=== PATIENT | female | born 1980 | race Hispanic/Latino ===

== ENCOUNTER 2018-01-16 12:59 | Emergency (ER) | payer SELFPAY ==
[2018-01-16 13:11] VITALS: BP 110/74
[2018-01-16] MEDS ORDERED: DECADRON IV ONE (14:12)
--- NOTE | 2018-01-16 15:20 | Cat Scan Report ---
FINAL REPORT PROCEDURE: CT LUMBAR SPINE WO CON TECHNIQUE: Computerized axial tomography of the lumbar spine was performed from T12 to the sacrum without contrast material. HISTORY: severe back pain COMPARISON: No prior studies are available for comparison. FINDINGS: The vertebral body heights and alignment are maintained. There is limited evaluation of disc material. There is likely broad-based posterior disc herniation at L4-5. There is significant disc space narrowing, endplate sclerosis, and osteophyte formation at L5-S1. There may also be a broad-based posterior disc protrusion. Facet arthritic changes are also noted bilaterally. No acute fracture or subluxation is seen. IMPRESSION: Degenerative disc changes at L4-5 and L5-S1. Consider further evaluation with MRI to evaluate the disc material
--- NOTE | 2018-01-16 15:51 | Emergency Department Report ---
ED Back Pain/Injury HPI - General Chief Complaint: Back Pain/Injury Stated Complaint: PALPITATIONS Time Seen by Provider: 01/16/18 14:12 Source: patient Mode of arrival: Wheelchair Limitations: No Limitations - History of Present Illness Initial Comments: This is a 37 y.o. female that presents with low back pain and facial numbness for 1 day. Patient reports standing up from vanity chair and heard a loud pop in lower back and felt numbness on left side of face. She is currently taking abiola and xanax for chronic back pain. Followed by [facility] and pain management. She reports having difficulty standing and walking. She is sitting in a wheelchair with family at bedside. Reports pain 10/10 and constant. She is taking current medication for pain which is not controlling pain. She put a heating pad to lower back causing bruising and burned skin all day yesterday. There is mild swelling to bilateral lower back. Denies chest pain, nausea/ vomiting, difficulty voiding or passing stool, and numbness/tingling to lower extremity. MD Complaint: back pain, back injury -: days(s) (1) Similar Symptoms Previously: Yes (chronic low back pain, but never bothered ambulation) Place: home Radiation: none Severity: severe Severity scale (0 -10): 10 Quality: sharp, aching Consistency: constant Improves With: none Worsens With: movement, walking Context: other (while standing from chair) Associated Symptoms: difficulty walking. denies: difficulty urinating, diaphoresis, incontinence, fever/chills, constipation, headaches, abdominal pain , loss of appetite, nausea/vomiting, rash, seizure, shortness of breath, syncope - Related Data Home Medications Medication Instructions Recorded Confirmed Last Taken ALPRAZolam [Xanax TAB] 1 mg PO BID PRN 07/19/15 07/19/15 07/19/15 07:00 Cyclobenzaprine [Flexeril 10 MG 10 mg PO TID PRN 07/19/15 07/19/15 07/18/15 15: 30 TAB] Oxycodone HCl [Roxicodone TAB] 30 mg PO Q6H PRN 07/19/15 07/19/15 07/19/15 07:00 Previous Rx's Medication Instructions Recorded Last Taken Type Amoxicillin [Trimox CAP] 500 mg PO Q8H #30 capsule 07/19/15 Unknown Rx levETIRAcetam [Keppra TAB] 500 mg PO BID #60 tablet 07/19/15 Unknown Rx Prednisone [predniSONE 10 mg 10 mg PO .TAPER #1 tab.ds.pk 01/16/18 Unknown Rx (6-Day Pack, 21 Tabs)] Allergies Allergy/AdvReac Type Severity Reaction Status Date / Time haloperidol [From Haldol] AdvReac Unknown Verified 07/19/15 10:30 haloperidol lactate AdvReac Unknown Verified 07/19/15 10:30 [From Haldol] ED Review of Systems ROS: Stated complaint: PALPITATIONS Other details as noted in HPI Constitutional: denies: chills, fever Respiratory: denies: cough, shortness of breath, wheezing Cardiovascular: denies: chest pain, palpitations Gastrointestinal: denies: abdominal pain, nausea, diarrhea Genitourinary: denies: urgency, dysuria, discharge Musculoskeletal: back pain (low back pain). denies: joint swelling, arthralgia Skin: other (brusining or burn to lower back from heat pad). denies: rash, lesions Neurological: numbness (left side facial numbness), abnormal gait (unable to walk or stand). denies: headache, weakness, paresthesias, confusion Psychiatric: denies: anxiety, depression ED Past Medical Hx - Past Medical History FIBROIDS. L4-L5 HERNIATED DISC. DDD/ STENOSIS--PAIN MANAGEMENT,DJD ED Back Pain Physical Exam - Exam General: Vital signs noted. No distress. Alert and acting appropriately. Back/Abdomen: Yes Perilumbar Tenderness (palable spasm to deep palpation in the bilateral lumbar spine), Yes Sacroiliac Tenderness (bilateral), Yes Flank Tenderness (right), No Abdominal Tenderness, No Perithoracic Tenderness, No Straight Leg Raise Pain (unable to tolerate test) Neuro: Yes Normal Sensation, Yes Normal DTR's, No Motor Weakness, No Normal Gait (limited ROM) ED Course Vital Signs 01/16/18 13:02 Temperature 98.1 F Pulse Rate 114 H Respiratory 18 Rate Blood Pressure 110/74 O2 Sat by Pulse 97 Oximetry ED Medical Decision Making - Radiology Data Radiology results: report reviewed CT L-spine: Degenerative disc changes at L4-5 and L5-S1. Consider further evaluation with MRI to evaluate the disc material. - Medical Decision Making This is a 37 y.o. female that presents with low back pain and facial numbness for 1 day. Reports standing from vanity chair and couldn't stand up straight or move legs. History of chronic low back pain and followed by pain management. Currently taking xanax and abiola. Patient is stable and examined by me. Distress noted. Sitting in wheelchair. CT L-spine: Degenerative disc changes at L4-5 and L5-S1. Consider further evaluation with MRI to evaluate the disc material. HR elevated. Pain 08/25. Received decadron 10 mg IV once in ER. Discussed plan to transfer to [place] for further evaluation and MRI. Patient refused ambulance transport. States family will drive her to [place]. Critical care attestation.: If time is entered above; I have spent that time in minutes in the direct care of this critically ill patient, excluding procedure time. ED Disposition Clinical Impression: Lumbar disc herniation, Degenerative disc disease at L5-S1 level, Muscle spasm of back Low back pain Qualifiers: Chronicity: acute Back pain laterality: bilateral Sciatica presence: without sciatica Qualified Code(s): M54.5 - Low back pain First degree burn of back Qualifiers: Encounter type: initial encounter Qualified Code(s): T21.14XA - Burn of first degree of lower back, initial encounter Disposition: TO HOME OR SELFCARE Is pt being admited?: No Does the pt Need Aspirin: No Condition: Stable Instructions: Electrical Mcknight in Adults (ED), Low Back Strain (ED), Arthralgia (ED), Degenerative Disc Disease (ED) Additional Instructions: Follow up with [facility] in 24 hours. Start prednisone taper and take as directed. Apply bacitracin ointment to first degree burn area on lower back twice a day. It should heal within 1 week. Prescriptions: Prednisone [predniSONE 10 mg (6-Day Pack, 21 Tabs)] 10 mg PO .TAPER #1 tab.ds.pk Referrals: [facility] [Outside] - 3-5 Days [facility] [Outside] - 3-5 Days [facility] [Outside] - 3-5 Days DORI LOPEZ MD [Staff Physician] - 3-5 Days [facility] [Provider Group] - 3-5 Days Time of Disposition: 16:22 Print Language: IRISH
== END 2018-01-16 16:34 | disposition home or self-care (01) ==
LOC: ED 12:59
DX: T21.14XA Burn of first degree of lower back, initial encounter (principal); M51.37 Other intervertebral disc degeneration, lumbosacral region; M62.830 Muscle spasm of back; Z88.8 Allergy status to other drugs, medicaments and biological substances; X30.XXXA Exposure to excessive natural heat, initial encounter; Y93.89 Activity, other specified; Y92.89 Other specified places as the place of occurrence of the external cause; Y99.8 Other external cause status
CPT/HCPCS: 72131; 96374; 99283; J1100

== ENCOUNTER 2019-12-17 12:26 | Emergency (ER) | payer MEDICAID ==
--- NOTE | 2019-12-17 13:43 | Emergency Department Report ---
Chief Complaint: Pain General Stated Complaint: CHEST/UPPER BODY PAIN - HPI History of Present Illness: 39 yo female mid and left cp, left abd pain, n,v hx of hystectomy chronic back pain pt on roxicodone (pain management) also on xanax smoker here 12/08/[address] abd/pelvis done - Exam Vital Signs: Vital Signs 12/17/19 12:33 Temperature 98.6 F Pulse Rate 136 H Respiratory 20 Rate Blood Pressure 112/73 [Right] O2 Sat by Pulse 95 Oximetry Physical Exam: chest: ctab, chest wall nontender cv: mild tachy, reg rhythm abd mild tender MSE screening note: Focused history and physical exam performed. Due to findings the following was ordered: ekg: reviewed cardiac labs, lft lipase inr cxr ua/uds declined offer for zofran not nauseated currently ED Medical Decision Making - EKG Data -: EKG Interpreted by Me EKG shows normal: ST-T waves (no stemi/t inv) Rate: tachycardia (113) ED Disposition for MSE Condition: Stable Referrals: PRIMARY CARE, [Primary Care Provider] - 3-5 Days
--- NOTE | 2019-12-17 14:07 | XRay Report ---
CHEST 2 VIEWS INDICATION / CLINICAL INFORMATION: Chest pain. COMPARISON: None available. FINDINGS: SUPPORT DEVICES: None. HEART / MEDIASTINUM: No significant abnormality. LUNGS / PLEURA: No significant pulmonary or pleural abnormality. No pneumothorax. ADDITIONAL FINDINGS: No significant additional findings. IMPRESSION: No acute finding. Signer Name: Abdulaziz Vaughn MD Signed: 12/17/2019 2:02 PM Workstation Name: [id number]
[2019-12-17 14:44] LABS: Basophils # (Auto) 0.1 K/mm3 (0.0-0.1); Basophils % (Auto) 0.8 % (0.0-1.8); Eosinophils % (Auto) 0.3 % (0.0-4.3); Hematocrit 45.2 % (30.3-42.9); Hemoglobin 15.5 gm/dl (10.1-14.3); Mean Corpuscular HGB Conc 34 % (30-34); Mean Corpuscular Volume 92 fl (79-97); Monocytes # (Auto) 0.9 K/mm3 (0.0-0.8); Monocytes % (Auto) 8.8 % (0.0-7.3); Platelet Count 229 K/mm3 (140-440); Red Blood Count 4.89 M/mm3 (3.65-5.03); Red Cell Distribution Width 13.3 % (13.2-15.2)
[2019-12-17 14:54] LABS: INR 0.93 (0.87-1.13)
[2019-12-17 15:05] LABS: Alanine Aminotransferase 31 units/L (7-56); Albumin 4.8 g/dL (3.9-5); BUN/Creatinine Ratio 18; Blood Urea Nitrogen 9 mg/dL (7-17); Calcium 10.3 mg/dL (8.4-10.2); Hemolysis Index 22
[2019-12-17] MEDS ORDERED: MORPHINE 2 MG/1 ML INJ IV ONE (16:03)
[2019-12-17] MEDS ORDERED: PANTOPRAZOLE 40 MG INJ IV ONE (16:03)
[2019-12-17] MEDS ORDERED: FAMOTIDINE 20 MG/2 ML INJ IV ONE (16:03)
[2019-12-17] MEDS ORDERED: SODIUM CHLORIDE 0.9% 1000 ML 1,000 ML IV ONE (16:03)
[2019-12-17] MEDS ORDERED: ONDANSETRON 4 MG/2 ML INJ IV ONE (16:03)
--- NOTE | 2019-12-17 16:09 | Emergency Department Report ---
ED General Adult HPI - General Chief complaint: Pain General Stated complaint: CHEST/UPPER BODY PAIN Time Seen by Provider: 12/17/19 16:04 Source: patient Mode of arrival: Ambulatory Limitations: No Limitations - History of Present Illness Initial comments: Patient is a 39-year-old female with past medical history of chronic back pain as well as a possible history of peptic ulcer disease in the past and hypertension who is presenting with left sided chest and left upper quadrant pain. Patient states pain is not reproducible as a deep pain. She states it's a 6 out of 10 in severity. Patient is on pain management and says she's taken several pain pills this morning with no relief. She's had multiple episodes of nausea vomiting with what she states is her coffee-ground emesis. She denies having a bowel movement today. Therefore she does not know if she has any melena. Patient denies fevers chills cough cold congestion at this time. Patient's last episodes of vomiting is early this morning. Severity scale (0 -10): 6 - Related Data Home Medications Medication Instructions Recorded Confirmed Last Taken ALPRAZolam [Xanax TAB] 1 mg PO BID PRN 07/19/15 12/08/18 07/19/15 07:00 Cyclobenzaprine [Flexeril 10 MG 10 mg PO TID PRN 07/19/15 12/08/18 07/18/15 15:30 TAB] Oxycodone HCl [Roxicodone TAB] 30 mg PO Q6H PRN 07/19/15 12/08/18 07/19/15 07:00 Metoprolol [Lopressor] 25 mg PO QAM 12/08/18 12/08/18 Unknown Previous Rx's Medication Instructions Recorded Last Taken Type Ondansetron [Zofran Odt] 4 mg PO Q8HR PRN #14 tab.rapdis 12/08/18 Unknown Rx traMADoL [Ultram] 50 mg PO Q6HR PRN #14 tablet 12/08/18 Unknown Rx Dicyclomine [Bentyl] 20 mg PO QID #10 tablet 12/17/19 Unknown Rx Ondansetron [Zofran Odt] 4 mg PO Q8HR #10 tab.rapdis 12/17/19 Unknown Rx Pantoprazole [Protonix] 40 mg PO QDAY #30 tablet 12/17/19 Unknown Rx Allergies Allergy/AdvReac Type Severity Reaction Status Date / Time haloperidol [From Haldol] AdvReac Unknown Verified 07/19/15 10:30 haloperidol lactate AdvReac Unknown Verified 07/19/15 10:30 [From Haldol] ED Review of Systems ROS: Stated complaint: CHEST/UPPER BODY PAIN Other details as noted in HPI Comment: All other systems reviewed and negative ED Past Medical Hx - Past Medical History Previous Medical History?: Yes Hx Hypertension: Yes Hx Seizures: Yes Hx Psychiatric Treatment: Yes (PTSD,bipolar) Additional medical history: FIBROIDS. L4-L5 HERNIATED DISC. DDD/ STENOSIS--PAIN MANAGEMENT,DJD - Surgical History Past Surgical History?: Yes Additional Surgical History: HYSTERECTOMY - Social History Smoking Status: Current Every Day Smoker Substance Use Type: Prescribed - Medications Home Medications: Home Medications Medication Instructions Recorded Confirmed Last Taken Type ALPRAZolam [Xanax TAB] 1 mg PO BID PRN 07/19/15 12/08/18 07/19/15 07:00 History Cyclobenzaprine [Flexeril 10 MG 10 mg PO TID PRN 07/19/15 12/08/18 07/18/15 15:30 History TAB] Oxycodone HCl [Roxicodone TAB] 30 mg PO Q6H PRN 07/19/15 12/08/18 07/19/15 07:00 History Metoprolol [Lopressor] 25 mg PO QAM 12/08/18 12/08/18 Unknown History Ondansetron [Zofran Odt] 4 mg PO Q8HR PRN #14 tab.rapdis 12/08/18 Unknown Rx traMADoL [Ultram] 50 mg PO Q6HR PRN #14 tablet 12/08/18 Unknown Rx Dicyclomine [Bentyl] 20 mg PO QID #10 tablet 12/17/19 Unknown Rx Ondansetron [Zofran Odt] 4 mg PO Q8HR #10 tab.rapdis 12/17/19 Unknown Rx Pantoprazole [Protonix] 40 mg PO QDAY #30 tablet 12/17/19 Unknown Rx ED Physical Exam - General Limitations: No Limitations General appearance: alert, in no apparent distress - Head Head exam: Present: atraumatic, normocephalic - Eye Eye exam: Present: normal appearance, PERRL, EOMI - ENT ENT exam: Present: mucous membranes moist - Neck Neck exam: Present: normal inspection - Respiratory Respiratory exam: Present: normal lung sounds bilaterally. Absent: respiratory distress, wheezes, rales, rhonchi - Cardiovascular Cardiovascular Exam: Present: normal rhythm, tachycardia, normal heart sounds. Absent: systolic murmur, diastolic murmur, rubs, gallop - GI/Abdominal GI/Abdominal exam: Present: soft, normal bowel sounds. Absent: distended, tenderness, guarding, rebound - Extremities Exam Extremities exam: Present: normal inspection - Back Exam Back exam: Present: normal inspection - Neurological Exam Neurological exam: Present: alert, oriented X3 - Psychiatric Psychiatric exam: Present: normal affect, normal mood - Skin Skin exam: Present: warm, dry, intact, normal color. Absent: rash ED Course Vital Signs 12/17/19 12:33 Temperature 98.6 F Pulse Rate 136 H Respiratory 20 Rate Blood Pressure 112/73 [Right] O2 Sat by Pulse 95 Oximetry - Reevaluation(s) Reevaluation #1: 12/17/19 16:09 Patient is a 39-year-old females have multiple episodes of nausea vomiting and what she describes as coffee ground emesis. Patient is tachycardic. Patient will be started on IV hydration and given medication for symptomatic relief. NG tube will be attempted to see if the patient is actively having any bleeding in the stomach at this time. Reevaluation #2: 12/17/19 18:45 NG tube was placed and lavaged and there is no coffee-ground emesis found. NG tube was removed and the patient will be discharged home. Patient given medications for acute gastritis with possible peptic ulcer disease. Patient discharged to follow with gastroenterology. She'll be started on Protonix and Z ofran and can continue with her pain medications ED Medical Decision Making - Lab Data Result diagrams: 12/17/19 14:24 12/17/19 14:24 - EKG Data -: EKG Interpreted by Me EKG shows normal: sinus rhythm, axis, intervals, QRS complexes, ST-T waves Rate: tachycardia (113) - EKG Data Interpretation: normal EKG Critical care attestation.: If time is entered above; I have spent that time in minutes in the direct care of this critically ill patient, excluding procedure time. ED Disposition Clinical Impression: Mild dehydration Acute gastritis Qualifiers: Gastritis type: unspecified gastritis Gastritis bleeding: without bleeding Qualified Code(s): K29.00 - Acute gastritis without bleeding Nausea & vomiting Qualifiers: Vomiting type: unspecified Vomiting Intractability: non-intractable Qualified Code(s): R11.2 - Nausea with vomiting, unspecified Disposition: TO HOME OR SELFCARE Is pt being admited?: No Does the pt Need Aspirin: No Condition: Stable Instructions: Gastritis (ED), Diet for Ulcers and Gastritis (ED) Referrals: [facility] [Provider Group] - 3-5 Days Time of Disposition: 18:47
[2019-12-17] MEDS ORDERED: DICYCLOMINE 20 MG/2 ML INJ IM ONE (18:26)
[2019-12-17 18:53] LABS: Bacteria,Urine 1+ /HPF (Negative); Bilirubin,Urine NEG (Negative); Blood,Urine NEG (Negative); Color,Urine Blue (Yellow); Protein,Urine <15 mg/dL mg/dL (Negative); Urobilinogen,Urine < 2.0 mg/dL (<2.0); WBC,Urine < 1.0 /HPF (0.0-6.0)
[2019-12-17 18:54] LABS: Amphetamine Screen,Urine PRESUMPTIVE NEGATIVE; Cocaine Screen,Urine PRESUMPTIVE NEGATIVE; Methadone Screen,Urine PRESUMPTIVE NEGATIVE; Opiate Screen,Urine PRESUMPTIVE NEGATIVE
[2019-12-17 19:06] LABS: Benzodiazepines Screen,Urine PRESUMPTIVE POSITIVE; Cannabinoid Screen,Urine PRESUMPTIVE POSITIVE
[2019-12-17 19:34] VITALS: BP 122/76
== END 2019-12-17 20:05 | disposition home or self-care (01) ==
LOC: ED 12:26
DX: E86.0 Dehydration (principal); K29.00 Acute gastritis without bleeding; I10 Essential (primary) hypertension; G40.909 Epilepsy, unspecified, not intractable, without status epilepticus; F31.9 Bipolar disorder, unspecified; F17.200 Nicotine dependence, unspecified, uncomplicated; Z90.710 Acquired absence of both cervix and uterus; Z79.899 Other long term (current) drug therapy; Z88.8 Allergy status to other drugs, medicaments and biological substances
CPT/HCPCS: 36415; 71046; 80053; 80307; 81001; 83690; 84484; 85025; 85610; 93005; 93010; 96361; 96372; 96374; 96375; 99284; C9113; J0500; J2270; J2405; J7030

== ENCOUNTER 2022-03-31 18:13 | Emergency (ER) | payer MEDICAID ==
[2022-03-31 19:00] VITALS: BP 142/97
== END 2022-04-01 07:57 | disposition left against medical advice (07) ==
LOC: ED 18:13
DX: M54.9 Dorsalgia, unspecified (principal); M25.559 Pain in unspecified hip; Z53.21 Procedure and treatment not carried out due to patient leaving prior to being seen by health care provider

== ENCOUNTER 2022-08-10 11:56 | Emergency (ER) | payer MEDICAID ==
[2022-08-10 12:10] VITALS: BP 142/88
--- NOTE | 2022-08-10 13:12 | Event Note ---
ED Screening Note Date of service: 08/10/22 Time: 13:12 ED Screening Note: This initial assessment/diagnostic orders/clinical plan/treatment(s) is/are subject to change based on patients health status, clinical progression and re- assessment by fellow clinical providers in the ED. Further treatment and workup at subsequent clinical providers discretion. Patient/guardian urged not to elope from the ED as their condition may be serious if not clinically assessed and managed. Patient on oxycodone 30mg QID for 10 years. REcently deecreased to 20mg TID and took more than prescribed. Now out wince yesterday and having back pain, shakes and headache. VSS. Appears non-toxic. Heart lungs CTA. Abdomen soft, non- tender. Initial orders include: My Active Orders 08/10/22 13:13 Mental Health Evaluation ONCE Acetaminophen Stat Basic Metabolic Panel Stat Complete Blood Count Auto Diff Stat Drugs of Abuse Panel, Urine Stat Salicylate Stat Urinalysis Complete Stat
[2022-08-10 14:00] LABS: Blood Urea Nitrogen 9 mg/dL (7-17); Calcium 9.9 mg/dL (8.4-10.2); Hemolysis Index 29
[2022-08-10 14:01] LABS: BUN/Creatinine Ratio 15
[2022-08-10 14:33] LABS: Basophils % (Auto) 0.5 % (0.0-1.8); Eosinophils % (Auto) 0.3 % (0.0-4.3); Hematocrit 47.6 % (30.3-42.9); Hemoglobin 15.9 gm/dl (10.1-14.3); Lymphocytes # (Auto) 1.6 K/mm3 (1.2-5.4); Lymphocytes % (Auto) 17.6 % (13.4-35.0); Mean Corpuscular HGB Conc 34 % (30-34); Mean Corpuscular Volume 94 fl (79-97); Monocytes # (Auto) 0.7 K/mm3 (0.0-0.8); Monocytes % (Auto) 7.3 % (0.0-7.3); Platelet Count 237 K/mm3 (140-440); Red Blood Count 5.04 M/mm3 (3.65-5.03); Red Cell Distribution Width 12.9 % (13.2-15.2)
== END 2022-08-11 03:39 | disposition left against medical advice (07) ==
LOC: ED 11:56
DX: M54.9 Dorsalgia, unspecified (principal); F10.239 Alcohol dependence with withdrawal, unspecified; Z53.21 Procedure and treatment not carried out due to patient leaving prior to being seen by health care provider; Y90.9 Presence of alcohol in blood, level not specified
CPT/HCPCS: 36415; 80048; 80320; 85025; G0480